=== PATIENT | male | born 1940 | race Caucasian/White ===

== ENCOUNTER 2020-04-29 16:00 | Emergency (ER) | payer MEDICARE, BC ==
[2020-04-29] MEDS ORDERED: Sodium Chloride 0.9% 10 ML Syringe FLUSH PRN (16:21)
[2020-04-29] MEDS ORDERED: Dexamethasone 10 MG/ML SDV IVPUSH ONE (17:47)
--- NOTE | 2020-04-29 18:09 | EDM.PDOC ---
ED HPI GENERAL MEDICAL PROBLEM - General Chief Complaint: Respiratory Problem Time Seen by Provider: 04/29/20 16:16 Source of Information: Reports: Patient, EMS, RN Notes Reviewed - History of Present Illness INITIAL COMMENTS - FREE TEXT/NARRATIVE: 79 yr old male that became ill about 4 to 5 days ago with cough. He started getting short of breath about 2 days ago, much worse today. On arrival to ED by [facility] his sats were only about 60 on 6 L NC. At time of exam sats were 87 to 89 15 L NRB. No chest pain. Some chills but no definite fever. Hx of Htn, COPD with strong smoking hx until he quit about 35 yrs ago, therefore smoked 25 to 30 yrs. - Related Data Allergies Allergy/AdvReac Type Severity Reaction Status Date / Time No Known Allergies Allergy Verified 04/29/20 16:15 Home Meds: Home Meds Albuterol Sulfate [Albuterol Sulfate Hfa] 2 puff INH Q4H PRN 04/29/20 [History] Aspirin [Halfprin] 81 mg PO DAILY 04/29/20 [History] Baclofen 5 mg PO TID 04/29/20 [History] Budesonide/Formoterol Fumarate [Budesonide-Formoterol 160-4.5] 2 puff PO BID 04/29/20 [History] Cetirizine [ZyrTEC] 10 mg PO QPM 04/29/20 [History] Cinnamon Bark/Chromium Picolin [Cinnamon Plus Chromium Capsule] 200 - 1,000 tab PO DAILY 04/29/20 [History] Clopidogrel Bisulfate [Plavix] 75 mg PO DAILY 04/29/20 [History] Cyanocobalamin (Vitamin B-12) [B-12] 500 mg PO DAILY 04/29/20 [History] Ferrous Sulfate 325 mg PO DAILY 04/29/20 [History] Furosemide [Lasix] 80 mg PO DAILY 04/29/20 [History] Garlic 1 tab PO DAILY 04/29/20 [History] Glucosam/Chond/Hyalu/Cf Borate [Move Free Joint Health Tablet] 1 tab PO DAILY 04/29/20 [History] Krill Oil 1 tab PO DAILY 04/29/20 [History] Labetalol [Normodyne] 150 mg PO QPM 04/29/20 [History] Labetalol [Normodyne] 300 mg PO QAM 04/29/20 [History] Milk Thistle Seed Extract [Milk Thistle] 2,000 mg PO DAILY 04/29/20 [History] Multivit-Min/FA/Lycopen/Lutein [Centrum Silver Tablet] 1 tab PO DAILY 04/29/20 [History] amLODIPine [Norvasc] 10 mg PO DAILY 04/29/20 [History] Past Medical History HEENT History: Reports: Cataract Respiratory History: Reports: Asthma Genitourinary History: Reports: Acute Renal Failure, Dialysis Neurological History: Reports: CVA Social & Family History - Tobacco Use Tobacco Use Status *Q: Former Tobacco User Years of Tobacco use: 40 Used Tobacco, but Quit: Yes Month/Year Tobacco Last Used: 06/1989 - Caffeine Use Caffeine Use: Reports: Coffee - Recreational Drug Use Recreational Drug Use: No ED ROS GENERAL - Review of Systems Review Of Systems: See Below Constitutional: Reports: Chills. Denies: Fever HEENT: Denies: Sinus Problem, Throat Pain Respiratory: Reports: Shortness of Breath, Wheezing, Cough Cardiovascular: Denies: Chest Pain Endocrine: Reports: Fatigue GI/Abdominal: Reports: Decreased Appetite. Denies: Abdominal Pain, Diarrhea, Nausea, Vomiting Musculoskeletal: Reports: Other (generalized achiness) Skin: Denies: Rash Neurological: Reports: Dizziness, Weakness (generalized) ED EXAM, GENERAL - Physical Exam Exam: See Below General Appearance: Alert, Moderate Distress Eye Exam: Bilateral Eye: PERRL Head: Atraumatic. No: Facial Swelling Neck: Supple, Other (no JVD) Respiratory/Chest: Respiratory Distress (moderate tachypnea), Rhonchi Cardiovascular: Regular Rate, Rhythm GI/Abdominal: Soft, Non-Tender. No: Guarding Back Exam: No: CVA Tenderness (L), CVA Tenderness (R) Extremities: No: Pedal Edema, Leg Pain, Increased Warmth, Redness Neurological: Alert, Oriented, No Motor/Sensory Deficits Skin Exam: Warm, Dry, Pallor #1 Interpretation EKG Date: 04/29/20 Rhythm: Other (NSR, one PVC) P-Wave: Present QRS: Normal ST-T: Normal Course - Vital Signs Last Recorded V/S: Last Vital Signs Temp 96.4 F L 04/29/20 16:12 Pulse 72 11/21/20 18:33 Resp 27 H 04/29/20 18:33 BP 129/58 L 04/29/20 18:33 Pulse Ox 93 L 04/29/20 18:36 - Orders/Labs/Meds Orders: Active Orders 24 hr Category Date Time Status EKG 12 Lead [EKG Documentation Completion] [RC] STAT Care 04/29/20 16:21 Active Oxygen Therapy [RC] ASDIRECTED Care 04/29/20 16:21 Active Peripheral IV Care [RC] . DIRECTED Care 04/29/20 16:21 Active Chest 1V Frontal [CR] Stat Exams 04/29/20 16:20 Taken Sodium Chloride 0.9% [Saline Flush] Med 04/29/20 16:21 Active 10 ml FLUSH ASDIRECTED PRN Peripheral IV Insertion Adult [OM.PC] Stat Oth 04/29/20 16:21 Ordered Medication Orders Sodium Chloride (Saline Flush) 10 ml FLUSH ASDIRECTED PRN PRN Reason: Keep Vein Open Last Admin: 04/29/20 16:00 Dose: 10 ml Documented by: CISCO Labs: Laboratory Tests 04/29/20 04/29/20 04/29/20 Range/Units 16:10 16:10 16:10 WBC 18.12 H (4.23-9.07) K/mm3 RBC 4.91 (4.63-6.08) M/mm3 Hgb 14.5 (13.7-17.5) gm/dl Hct 42.7 (40.1-51.0) % MCV 87.0 (79.0-92.2) fl MCH 29.5 (25.7-32.2) pg MCHC 34.0 (32.2-35.5) g/dl RDW Std Deviation 42.7 (35.1-43.9) fL Plt Count 362 H (163-337) K/mm3 MPV 9.7 (9.4-12.3) fl Neut % (Auto) 77.8 H (34.0-67.9) % Lymph % (Auto) 15.2 L (21.8-53.1) % [place] % (Auto) 4.6 L (5.3-12.2) % Eos % (Auto) 0 L (0.8-7.0) Baso % (Auto) 0.3 (0.1-1.2) % Neut # (Auto) 14.10 H (1.78-5.38) K/mm3 Lymph # (Auto) 2.75 (1.32-3.57) K/mm3 [place] # (Auto) 0.83 H (0.30-0.82) K/mm3 Eos # (Auto) 0.00 L (0.04-0.54) K/mm3 Baso # (Auto) 0.06 (0.01-0.08) K/mm3 Manual Slide Review D-Dimer, Quantitative (0.19-0.50) mg/L Puncture Site ABG pH (7.35-7.45) ABG pCO2 (35.0-45.0) mmHg ABG pO2 (80.0-100.0) mmHg ABG HCO3 (22.0-26.0) meq/L ABG O2 Saturation (96.0-97.0) % ABG Base Excess (-2-2.0) A-a Gradient mmHg O2 Delivery Device Oxygen Flow Rate FiO2 (21.00-100.00) % Sodium 137 (136-145) mEq/L Potassium 3.3 L (3.5-5.1) mEq/L Chloride 98 (98-107) mEq/L Carbon Dioxide 27 (21-32) mEq/L Anion Gap 15.3 H (5-15) BUN 51 H (7-18) mg/dL Creatinine 1.9 H (0.7-1.3) mg/dL Est Cr Clr Drug Dosing 30.50 mL/min Estimated GFR (MDRD) 34 (>60) mL/min BUN/Creatinine Ratio 26.8 H (14-18) Glucose 119 H (83-115) mg/dL Calcium 9.0 (8.5-10.1) mg/dL Ferritin (26-388) ng/ml Total Bilirubin 0.1 L (0.2-1.0) mg/dL AST 59 H (15-37) U/L ALT 54 (16-63) U/L Alkaline Phosphatase 91 (46-116) U/L Lactate Dehydrogenase 526 H (85-227) U/L Troponin I 0.129 H* (0.00-0.056) ng/mL C-Reactive Protein 19.3 H* (<1.0) mg/dL NT-Pro-B Natriuret Pep (0-450) pg/mL Total Protein 6.6 (6.4-8.2) g/dl Albumin 2.5 L (3.4-5.0) g/dl Globulin 4.1 gm/dL Albumin/Globulin Ratio 0.6 L (1-2) SARS-CoV-2 RNA (SHRUTHI) (NEGATIVE) 04/29/20 04/29/20 04/29/20 Range/Units 16:10 16:10 16:10 WBC (4.23-9.07) K/mm3 RBC (4.63-6.08) M/mm3 Hgb (13.7-17.5) gm/dl Hct (40.1-51.0) % MCV (79.0-92.2) fl MCH (25.7-32.2) pg MCHC (32.2-35.5) g/dl RDW Std Deviation (35.1-43.9) fL Plt Count (163-337) K/mm3 MPV (9.4-12.3) fl Neut % (Auto) (34.0-67.9) % Lymph % (Auto) (21.8-53.1) % [place] % (Auto) (5.3-12.2) % Eos % (Auto) (0.8-7.0) Baso % (Auto) (0.1-1.2) % Neut # (Auto) (1.78-5.38) K/mm3 Lymph # (Auto) (1.32-3.57) K/mm3 [place] # (Auto) (0.30-0.82) K/mm3 Eos # (Auto) (0.04-0.54) K/mm3 Baso # (Auto) (0.01-0.08) K/mm3 Manual Slide Review D-Dimer, Quantitative 11.30 H (0.19-0.50) mg/L Puncture Site ABG pH (7.35-7.45) ABG pCO2 (35.0-45.0) mmHg ABG pO2 (80.0-100.0) mmHg ABG HCO3 (22.0-26.0) meq/L ABG O2 Saturation (96.0-97.0) % ABG Base Excess (-2-2.0) A-a Gradient mmHg O2 Delivery Device Oxygen Flow Rate FiO2 (21.00-100.00) % Sodium (136-145) mEq/L Potassium (3.5-5.1) mEq/L Chloride (98-107) mEq/L Carbon Dioxide (21-32) mEq/L Anion Gap (5-15) BUN (7-18) mg/dL Creatinine (0.7-1.3) mg/dL Est Cr Clr Drug Dosing mL/min Estimated GFR (MDRD) (>60) mL/min BUN/Creatinine Ratio (14-18) Glucose (83-115) mg/dL Calcium (8.5-10.1) mg/dL Ferritin 546 H (26-388) ng/ml Total Bilirubin (0.2-1.0) mg/dL AST (15-37) U/L ALT (16-63) U/L Alkaline Phosphatase (46-116) U/L Lactate Dehydrogenase (85-227) U/L Troponin I (0.00-0.056) ng/mL C-Reactive Protein (<1.0) mg/dL NT-Pro-B Natriuret Pep 4005 H (0-450) pg/mL Total Protein (6.4-8.2) g/dl Albumin (3.4-5.0) g/dl Globulin gm/dL Albumin/Globulin Ratio (1-2) SARS-CoV-2 RNA (SHRUTHI) (NEGATIVE) 04/29/20 04/29/20 Range/Units 16:20 16:32 WBC (4.23-9.07) K/mm3 RBC (4.63-6.08) M/mm3 Hgb (13.7-17.5) gm/dl Hct (40.1-51.0) % MCV (79.0-92.2) fl MCH (25.7-32.2) pg MCHC (32.2-35.5) g/dl RDW Std Deviation (35.1-43.9) fL Plt Count (163-337) K/mm3 MPV (9.4-12.3) fl Neut % (Auto) (34.0-67.9) % Lymph % (Auto) (21.8-53.1) % [place] % (Auto) (5.3-12.2) % Eos % (Auto) (0.8-7.0) Baso % (Auto) (0.1-1.2) % Neut # (Auto) (1.78-5.38) K/mm3 Lymph # (Auto) (1.32-3.57) K/mm3 [place] # (Auto) (0.30-0.82) K/mm3 Eos # (Auto) (0.04-0.54) K/mm3 Baso # (Auto) (0.01-0.08) K/mm3 Manual Slide Review D-Dimer, Quantitative (0.19-0.50) mg/L Puncture Site Lt radial ABG pH 7.44 (7.35-7.45) ABG pCO2 33.6 L (35.0-45.0) mmHg ABG pO2 56.0 L (80.0-100.0) mmHg ABG HCO3 22.2 (22.0-26.0) meq/L ABG O2 Saturation 84.9 L (96.0-97.0) % ABG Base Excess -0.9 (-2-2.0) A-a Gradient 472 mmHg O2 Delivery Device Nrb Oxygen Flow Rate 15.0 FiO2 80.00 (21.00-100.00) % Sodium (136-145) mEq/L Potassium (3.5-5.1) mEq/L Chloride (98-107) mEq/L Carbon Dioxide (21-32) mEq/L Anion Gap (5-15) BUN (7-18) mg/dL Creatinine (0.7-1.3) mg/dL Est Cr Clr Drug Dosing mL/min Estimated GFR (MDRD) (>60) mL/min BUN/Creatinine Ratio (14-18) Glucose (83-115) mg/dL Calcium (8.5-10.1) mg/dL Ferritin (26-388) ng/ml Total Bilirubin (0.2-1.0) mg/dL AST (15-37) U/L ALT (16-63) U/L Alkaline Phosphatase (46-116) U/L Lactate Dehydrogenase (85-227) U/L Troponin I (0.00-0.056) ng/mL C-Reactive Protein (<1.0) mg/dL NT-Pro-B Natriuret Pep (0-450) pg/mL Total Protein (6.4-8.2) g/dl Albumin (3.4-5.0) g/dl Globulin gm/dL Albumin/Globulin Ratio (1-2) SARS-CoV-2 RNA (SHRUTHI) Positive H (NEGATIVE) Meds: Medications Generic Name Dose Route Start Last Admin Trade Name Jose Alberto PRN Reason Stop Dose Admin Sodium Chloride 10 ml 04/29/20 16:21 04/29/20 16:00 Saline Flush FLUSH 10 ml ASDIRECTED PRN Administration Keep Vein Open Discontinued Medications Generic Name Dose Route Start Last Admin Trade Name Freralf PRN Reason Stop Dose Admin Dexamethasone 6 mg 04/29/20 17:47 04/29/20 18:02 Decadron IVPUSH 04/29/20 17:48 6 mg ONETIME ONE Administration Furosemide 40 mg 04/29/20 18:55 04/29/20 19:02 Lasix IVPUSH 04/29/20 18:56 40 mg NOW ONE Administration - Re-Assessments/Exams Free Text/Narrative Re-Assessment/Exam: 04/29/20 18:05 We are once again on diversion. He is positive for covid and all of his markers and bilat infiltrates on CXR all support that. [facility], they will get back to us about 1 possible covid bed. 18:35. [facility] cannot take him for now. They might have a bed in 1 to 2 hrs. Will take that bed if it opens up, but will try other hospitals in the meantime. 04/29/20 19:00. [facility] is able to take him. Dr Black, Hospitalist accepting Phys. We will send him fixed wing. Per ABG's he was hypoxic on 15 L NRB. Have gone to [facility] [place]. At 50/50 his sats were 90 to 92 %. RT just informed me that she is now at 60/90 with him. Have given dexamethasone [address] Black recomends I go ahead and order lasix 40 mg IV which has been done. Departure - Departure Time of Disposition: 18:45 Disposition: DC/Tfer to Acute Hospital 02 Condition: Serious Clinical Impression: Pneumonia due to COVID-19 virus, Hypoxia, Renal insufficiency - Discharge Information Referrals: Guillermina Shell MD [Primary Care Provider] - Forms: ED Department Discharge Sepsis Event Note (ED) - Evaluation Sepsis Screening Result: No Definite Risk - Focused Exam Vital Signs: Vital Signs Temp Pulse Resp BP Pulse Ox Pulse Ox Pulse Ox 04/29/20 18:36 93 L 04/29/20 18:33 72 27 H 129/58 L 04/29/20 16:21 93 L 87 L 04/29/20 16:12 96.4 F L 77 25 H 128/65 90 L - My Orders Last 24 Hours: My Active Orders 04/29/20 16:20 Chest 1V Frontal [CR] Stat 04/29/20 16:21 EKG 12 Lead [EKG Documentation Completion] [RC] STAT Oxygen Therapy [RC] ASDIRECTED Peripheral IV Care [RC] . DIRECTED Sodium Chloride 0.9% [Saline Flush] 10 ml FLUSH ASDIRECTED PRN Peripheral IV Insertion Adult [OM.PC] Stat - Assessment/Plan Last 24 Hours: My Active Orders 04/29/20 16:20 Chest 1V Frontal [CR] Stat 04/29/20 16:21 EKG 12 Lead [EKG Documentation Completion] [RC] STAT Oxygen Therapy [RC] ASDIRECTED Peripheral IV Care [RC] . DIRECTED Sodium Chloride 0.9% [Saline Flush] 10 ml FLUSH ASDIRECTED PRN Peripheral IV Insertion Adult [OM.PC] Stat
[2020-04-29] MEDS ORDERED: Furosemide 40 MG/4 ML VIAL IVPUSH ONE (18:55)
--- NOTE | 2020-05-01 09:28 | CR ---
PROCEDURE INFORMATION: Exam: XR Chest, 1 View Exam date and time: 04/29/2020 4:05 PM Age: 79 years old Clinical indication: Cough and dyspnea and other: Hypoxia; Patient HX: Got covid tested, pending results from a drive through site TECHNIQUE: Imaging protocol: XR of the chest Views: 1 view. COMPARISON: No relevant prior studies available. FINDINGS: Lungs: Extensive interstitial opacities throughout both lungs, right greater than left. Pleural space: Unremarkable. No pleural effusion. No pneumothorax. Heart/Mediastinum: Unremarkable. No cardiomegaly. Bones/joints: Unremarkable. IMPRESSION: Diffuse interstitial opacities. Considerations include asymmetric edema versus multifocal infiltrates Thank you for allowing us to participate in the care of your patient. Dictated and Authenticated by: Aiden Carpenter MD 04/29/2020 5:37 PM Central Time ([place] & [place]) [email or web address]
== END 2020-04-29 19:50 ==
LOC: JD.ED 16:00
DX: U07.1 COVID-19 (principal); J12.89 Other viral pneumonia; R09.02 Hypoxemia; N28.9 Disorder of kidney and ureter, unspecified; J45.909 Unspecified asthma, uncomplicated; Z79.82 Long term (current) use of aspirin; Z79.02 Long term (current) use of antithrombotics/antiplatelets; Z79.899 Other long term (current) drug therapy; Z86.73 Personal history of transient ischemic attack (TIA), and cerebral infarction without residual deficits; Z87.891 Personal history of nicotine dependence
CPT/HCPCS: 36415; 36600; 71045; 80053; 82728; 82803; 83615; 83880; 84484; 85025; 85379; 86140; 93005; 96374; 96375; 99285; J1100; J1940; U0002; 93010; 99284